=== PATIENT | female | born 1940 | race Caucasian/White ===

== ENCOUNTER → 2018-04-28 | Outpatient (CLI) | payer OTHER, BC ==
[~2018-04-28] VITALS: Ht 172.7 cm; Wt 60.3 kg
[~2018-04-28] MED LIST: CARTIA XT300 M1 PO; CLONAZEPAM 0.50.5 M1 PO; COLESTID1 GM PO; HYDROCHLOROTHIA25 M2 PO; IMODIUM A-D2 MG PO; K-DUR 20 MEQ T20 MEQ PO; LEVALBUTER1.25 MG/0. INH; LEVOTHYROXINE112 MCG PO; LIPITOR80 MG PO; MOVE FREE JOIN1 EACH PO; PRESERVISION A1 EACH PO; PROBIOTIC1 EAC1 PO; PROTONIX40 M1 PO; VITAMIN D1000 UNI1 PO
--- NOTE | ~2018-04-28 | P ---
[facility] [place] [address] PROCEDURE REPORT Name: NISHA LEACHN Room #: REG [facility]#: [id number] Admission: 04/28/18 Attend Phys: Marco Levin MD Discharge: Date of : 42 Report #: [id number] THIS REPORT FOR: //name// CC: FAM unknown Parul Levin OUTPATIENT UPPER ENDOSCOPY BRIEF HISTORY: The patient is a 78-year-old woman with known history of short segment Ordonez's esophagus. She has also had dysphagia in the past and presents today for recurrent solid food dysphagia and pill dysphagia. PREOPERATIVE DIAGNOSES: Dysphagia and history of Ordonez's esophagus. POSTOPERATIVE DIAGNOSES: 1. Short segment Ordonez's esophagus. 2. Dysphagia. 3. Diffuse gastritis. MEDICATIONS: Deep sedation with propofol per anesthesia. SPECIMEN: Biopsies of GE junction to evaluate her Ordonez's mucosa. ESTIMATED BLOOD LOSS: 3 mL. PROCEDURE: EGD with biopsy and Rubalcava dilation. FINDINGS: Prior to propofol sedation, procedure of upper endoscopy was discussed with the patient as well as potential risks and its complications. She indicates she understands and desires to proceed. DESCRIPTION OF PROCEDURE: With the patient in left lateral decubitus position, the Olympus video endoscope was inserted in the cervical esophagus under direct vision without difficulty. Examination of this organ through its entire length revealed normal esophageal mucosa down the squamocolumnar junction. Squamocolumnar junction was slightly irregular. She has been known to have a short segment Ordonez's esophagus of less than 2 cm. The mucosa was flat. No ulcers, strictures or masses were seen. Multiple biopsies were obtained. In view of her dysphagia, again no strictures were seen. However, she was subsequently dilated with passage of 52-Slovenian Rubalcava dilator due to her symptoms of dysphagia. A hiatus hernia was not seen either. Scope was advanced in the stomach, which was examined on end view as well as retroflexed views. There was erythema in the antrum and this has been noted before. A biopsy was not repeated at this time. No ulcers were seen. There was no evidence of outlet obstruction. Upon retroflexion, no mass lesions were seen in the cardia. [facility] [address] [place] [address] PROCEDURE REPORT Name: NISHA LEACHN Room #: REG [facility].#: [id number] Admission: 04/28/18 Attend Phys: Marco Levin MD Discharge: Date of : 42 Report #: [id number] The pylorus, duodenal bulb and postbulbar duodenal sweep were all inspected and noted to be within normal limits. At that point, the scope was slowly withdrawn and careful circumferential views confirmed the above findings. The patient tolerated the procedure well. CONDITION OF THE PATIENT UPON DISCHARGE: Following procedure, the patient was drowsy, arousable, conversant and will be discharged to home when fully ambulatory. INSTRUCTIONS TO THE PATIENT AND FAMILY AT THE TIME OF DISCHARGE: She has had dysphagia in the past and recurrent symptoms. I did not see definite stricture but she has responded to esophageal dilation in the past. We will repeat on an as needed basis going forward. We will follow up on the biopsy with regards to her Ordonez's mucosa. If there is no dysplasia, routine surveillance could be completed and should be completed in about 3 years. She will follow up with Dr. Parul Mariano and return to see me as needed. <ELECTRONICALLY SIGNED> By: Marco Levin MD 04/29/18 1126 [id number] [id number] Marco Levin MD /nt
--- NOTE | ~2018-04-28 | PATH ---
[facility] [address] [place] [address] PATHOLOGY RPT PROCEDURE Name: CARMEN LEACHLYN Room #: REG [facility] Godfrey.#: [id number] Admission: 04/28/18 Date of : 42 Discharge: Report #: [id number] Path Case #: [id number] [facility] Accession Number: [id number] . 01 Material submitted: . BX OF DISTAL ESOPHAGUS R/O HOLM'S . 01 Clinical history: . RULE OUT HOLM'S, HISTORY OF HOLM'S, DYSPHAGIA . 02 Diagnosis: "Bx of distal esophagus H/O Holm's", biopsy: - Esophageal squamous mucosa and gastric cardiac-type mucosa with reactive changes, chronic inflammation and focal minimal goblet cell formation; no dysplasia seen. (See comment). LBQ/04/29/2018 . 02 Comment: The findings may represent a small component of Holm's mucosa histologically. Clinical and endoscopic correlation is required. (CLW:db; 04/29/2018) . 02 Electronically signed: . Sulma Kam MD, Pathologist NPI- [id number] . 01 Gross description: . Received in formalin labeled "Shanice Leach, BX of distal esophagus rule out Ohlm's" and consists of 3 soft pink tissue fragments each averaging 0.3 cm. They are entirely submitted as A1. (CARMEN; 04/28/2018) JBR/JBR . 02 Pathologist provided ICD-10: K20.9 . 02 CPT . 184225 Performed at: [address], [place], [place] [id number] MD Maurilio Muse MD Phone: [phone] Performed at: [address] [id number] MD Marialuisa Galvez MD Phone: [phone]
== END | disposition home or self-care (01) ==
LOC: GI 08:28
DX: K29.70 Gastritis, unspecified, without bleeding (principal); K22.70 Barrett's esophagus without dysplasia; K21.0 Gastro-esophageal reflux disease with esophagitis; R13.19 Other dysphagia; I10 Essential (primary) hypertension; E78.5 Hyperlipidemia, unspecified; J45.909 Unspecified asthma, uncomplicated; Z85.038 Personal history of other malignant neoplasm of large intestine; Z98.890 Other specified postprocedural states; Z90.49 Acquired absence of other specified parts of digestive tract; Z85.828 Personal history of other malignant neoplasm of skin; Z79.899 Other long term (current) drug therapy; Z85.41 Personal history of malignant neoplasm of cervix uteri; Z88.0 Allergy status to penicillin; Z88.8 Allergy status to other drugs, medicaments and biological substances
CPT/HCPCS: 62110; 62900

== ENCOUNTER → 2020-01-25 | Outpatient (CLI) | payer OTHER, BC ==
[~2020-01-25] VITALS: Ht 165.1 cm; Wt 56.7 kg
[~2020-01-25] MED LIST changes: +ARTHRITIS PAIN650 M3 PO; +ESTRACE0.5 MG PO
--- NOTE | 2020-01-26 17:09 | P ---
[facility] [place] [address] PROCEDURE REPORT Name: BASILIO LEACH Room #: REG [facility].#: [id number] Admission: 01/25/20 Attend Phys: Marco Levin MD Discharge: Date of : 42 Report #: [id number] THIS REPORT FOR: cc: Parul Mariano MD, Jennifer MD Thesing,Marco Stapleton MD ~ CC: Dr. Jim ZAMAN DATE OF SERVICE: 01/25/2020 OUTPATIENT UPPER ENDOSCOPY REPORT BRIEF HISTORY: The patient is a 79-year-old woman who recently has had chest pressure. She has seen her computing systems mechanic. She has some coronary disease, but not thought to be significant. Her computing systems mechanic told her they did not think it was her heart. She also has asthma and is to see a fluid power mechanic. She does have history of reflux disease and has been on pantoprazole. She also has intermittent solid food dysphagia. In the past, there was a question whether she did or did not have Ordonez's esophagus. It was thought she may have had a short segment. PREOPERATIVE DIAGNOSES: Atypical chest pain and dysphagia. POSTOPERATIVE DIAGNOSES: 1. Moderately severe diffuse gastritis. 2. Dysphagia. MEDICATIONS: Deep sedation with propofol per anesthesia. SPECIMENS: 1. Biopsies of gastritis. 2. Biopsies of GE junction, rule out Ordonez's. ESTIMATED BLOOD LOSS: 3 mL. PROCEDURE: EGD with biopsy, Rubalcava dilation. FINDINGS: Prior to propofol sedation, procedure of upper endoscopy was discussed with the patient as well as potential risks and its complications. She indicates she understands and desires to proceed. DESCRIPTION OF PROCEDURE: With the patient in left lateral decubitus position, [facility] [address] [place] [address] PROCEDURE REPORT Name: BASILIO LEACH Room #: REG [facility]#: [id number] Admission: 01/25/20 Attend Phys: Marco Levin MD Discharge: Date of : 42 Report #: [id number] the Olympus video endoscope was inserted in the cervical esophagus under direct vision without difficulty. Examination of this organ through its entire length revealed normal esophageal mucosa. The squamocolumnar junction was intact and unremarkable. On examination today, I did not see an obvious short segment of Ordonez's mucosa. Again, no strictures or masses. A hiatus hernia was seen. Scope was advanced in the stomach, was examined on end view as well as retroflexed views. There was diffuse gastritis. No ulcers or erosions were seen. No retained solids or liquids were seen. Upon retroflexion, the GE junction appeared normal. However, in view of previous biopsies, which revealed Ordonez's esophagus, biopsies were obtained today. These may be biopsies of the gastric cardia, also biopsy taken of gastritis. The pylorus, duodenal bulb and postbulbar sweep were inspected and noted to be unremarkable. At that point, the scope was slowly withdrawn and careful circumferential views were obtained. No additional abnormalities were seen. Scope was withdrawn. The patient tolerated the procedure well. Subsequently, the patient was dilated with passage of 50-[place]awk Rubalcava dilator. There was a slight pop as the dilator passed suggesting there may be a ring, although a definite ring was not seen. CONDITION OF THE PATIENT UPON DISCHARGE: Following procedure, the patient was drowsy. She will be discharged home when fully ambulatory. INSTRUCTIONS TO THE PATIENT AND FAMILY AT THE TIME OF DISCHARGE: I do not see evidence of reflux esophagitis. She has been on pantoprazole. At this point, I suggest she increase her pantoprazole to twice daily. She should also follow up with her fluid power mechanic regarding her asthma. We will have her return to see me in followup in the office in 6 weeks to monitor progress. We will also follow up on biopsies, especially regarding the question of whether she does or does not have Ordonez's esophagus. <ELECTRONICALLY SIGNED> By: Marco Levin MD 01/26/20 1709 1009 [id number] Marco Levin MD /nt
--- NOTE | 2020-01-29 16:07 | PATH ---
[facility] [address] [address] PATHOLOGY RPT PROCEDURE Name: BASILIO LEACH Room #: REG [facility] Epifanio.#: [id number] Admission: 01/25/20 Date of : 42 Discharge: Report #: [id number] Path Case #: [id number] [facility] Accession Number: [id number] . 01 Material submitted: . PART A: stomach - BIOPSY GASTRITIS R/O H. PYLORI PART B: esophagus - BIOPSY GE JUNCTION R/O HOLM . 01 Clinical history: . Reflux, gastritis. . 02 Diagnosis: A. Gastric mucosa, gastritis to rule out H. pylori, endoscopic biopsy: - Mild to moderate reactive gastropathy with focal active gastritis. - Negative for intestinal metaplasia or atrophy. - Negative for Helicobacter pylori (properly controlled immunohistochemical stain performed). . B. Gastroesophageal mucosa, GE junction to rule out Holm's, endoscopic biopsy: - Moderate active esophagitis. - Negative for intestinal metaplasia (Holm's metaplasia) or dysplasia. - Squamous mucosa showing findings compatible with reflux esophagitis with 2 to 3 eosinophils per high power field. . (IUV:conveyor monitor; 01/29/2020) MBR 01/29/2020 1334 Local . 02 Electronically signed: . Marialuisa Galvez MD, Pathologist NPI- [id number] . 01 Gross description: . A. Received in formalin labeled "Basilio Leach BX gastritis rule out H. pylori" is a 1.0 x 0.3 x 0.1 cm aggregate of aden-brown soft tissue fragments. The specimen is submitted entirely in A1. . B. Received in formalin labeled "Basilio Leach, AUGIE GE junction rule out Holm" is a 1.0 x 0.5 x 0.1 cm aggregate of aden-brown soft tissue fragments. The specimen is submitted entirely in B1. ([facility]; 01/26/2020) [facility] 01/26/2020 1011 Local . 02 Pathologist provided ICD-10: K31.9, K29.70, K20.9 . 02 CPT . 753643, 729257, [id number] [place] [address] PATHOLOGY RPT PROCEDURE Name: BASILIO LEACH Room #: REG CLI .Dora.#: [id number] Admission: 01/25/20 Date of : 42 Discharge: Report #: [id number] Path Case #: [id number] Specimen Comment: A courtesy copy of this report has been sent to [phone], [phone] Specimen Comment: [id number] Specimen Comment: Report sent to / DR KHOURY Performed at: [address], [place] [id number] MD Maurilio Muse MD Phone: [phone] Performed at: [address] [id number] MD Marialuisa Galvez MD Phone: [phone]
== END | disposition home or self-care (01) ==
LOC: GI 08:27
DX: K29.70 Gastritis, unspecified, without bleeding (principal); K21.0 Gastro-esophageal reflux disease with esophagitis; K31.9 Disease of stomach and duodenum, unspecified; R13.19 Other dysphagia; I10 Essential (primary) hypertension; E78.5 Hyperlipidemia, unspecified; J45.909 Unspecified asthma, uncomplicated; Z98.890 Other specified postprocedural states; Z79.899 Other long term (current) drug therapy; Z85.41 Personal history of malignant neoplasm of cervix uteri; Z85.038 Personal history of other malignant neoplasm of large intestine; Z85.828 Personal history of other malignant neoplasm of skin
CPT/HCPCS: 62110; 62900